=== PATIENT | female | born 1950 | race Caucasian/White ===

== ENCOUNTER 2020-10-17 19:16 | Emergency (ER) | payer MEDICARE, OTHER ==
[2020-10-17 20:08] LABS: BASOPHIL 0.5 % (0-2); EOSINOPHIL 2.7 % (0-7); HCT 38.5 % (37.0-47.0); HGB 12.9 g/dl (12.5-16.0); LYMPHOCYTE 36.7 % (15-48); MCH 31.5 pg (25.0-31.0); MCHC 33.5 g/dL (32.0-36.0); MCV 94.1 fL (78.0-100.0); MONOCYTE 8.1 % (0-12); MPV 10.8 fL (6.0-9.5); NEUTROPHIL 51.8 % (41-80); NRBC 0; PLT 215 K/uL (150-400); RBC 4.09 M/uL (4.20-5.40); RDW 12.5 % (11.5-14.0); WBC 8.5 K/uL (4.0-10.5)
[2020-10-17 20:19] LABS: CREATININE 0.84 mg/dL (0.51-0.95); POTASSIUM 3.4 mmol/L (3.5-5.1)
== END 2020-10-17 21:50 | disposition home or self-care (01) ==
LOC: FER 19:16
PROVIDERS: Emergency Medicine
DX: I49.3 Ventricular premature depolarization (principal); I10 Essential (primary) hypertension; Z98.890 Other specified postprocedural states; Z88.1 Allergy status to other antibiotic agents; Z79.82 Long term (current) use of aspirin; Z79.899 Other long term (current) drug therapy
CPT/HCPCS: 36415; 80048; 84484; 85025; 93005